=== PATIENT | male | born 2000 | race Caucasian/White ===

== ENCOUNTER → 2020-01-04 | Outpatient (REF) | payer BC, OTHER ==
[2020-01-04 23:43] LABS: CHLAMYDIA DNA AMPLIFICATION NEGATIVE (NEGATIVE); GC DNA AMPLIFICATION NEGATIVE (NEGATIVE)
== END ==
LOC: M LAB REF 20:30
PROVIDERS: ATTEND Physician Assistant
DX: Z11.3 Encounter for screening for infections with a predominantly sexual mode of transmission (principal)